=== PATIENT | female | born 1990 | race Two or more races ===

== ENCOUNTER 2022-08-14 13:54 | Emergency (ER) | payer OTHER ==
[~2022-08-14] VITALS: Ht 165.1 cm; Wt 63.5 kg
[~2022-08-14 13:54] MED LIST: CLARITIN10 MG PO; DICY20TA PO; DURICEF 500 MG CAPSULE PO; FLONASE16 G1 NS; MOTRIN800 MG PO; OXYC1TAB9 PO; ZANTAC300 MG PO; ZYRTEC10 M3 PO
[2022-08-14] MEDS ORDERED: ZOFRAN8 MG PO (17:35)
[2022-08-14] MEDS ORDERED: CARAFATE1 GM PO (17:35)
[2022-08-14] MEDS ORDERED: PROTONIX40 M1 PO (17:35)
== END 2022-08-14 17:36 | disposition home or self-care (01) ==
LOC: ER 13:54
DX: R10.9 Unspecified abdominal pain (principal); Z91.013 Allergy to seafood; Z91.018 Allergy to other foods; N39.0 Urinary tract infection, site not specified

== ENCOUNTER 2024-03-20 19:08 | Emergency (ER) | payer OTHER ==
[~2024-03-20] VITALS: Ht 165.1 cm; Wt 74.8 kg
[~2024-03-20 19:08] MED LIST changes: +CARAFATE1 GM PO; +PROTONIX40 M1 PO; +ZOFRAN8 MG PO
[2024-03-20] MEDS ORDERED: CEFTRIAXONE SODIUM 1,000 MG VIAL IM STA (21:12)
[2024-03-20] MEDS ORDERED: CEFTRIAXONE SODIUM 1,000 MG VIAL ONE (21:19)
== END 2024-03-20 21:24 | disposition home or self-care (01) ==
LOC: ER 19:09
DX: H66.91 Otitis media, unspecified, right ear (principal); H92.01 Otalgia, right ear

== ENCOUNTER 2024-07-27 11:33 | Inpatient (IN) | payer OTHER ==
[~2024-07-27] VITALS: Ht 165.1 cm; Wt 79.4 kg
[2024-07-27] VITALS (7 sets, daily range): BP systolic 106–122; BP diastolic 58–79
[2024-07-27] MEDS ORDERED: RINGERS SOLUTION,LACTATED 1,000 ML IV SCH (12:00)
[2024-07-27] MEDS ORDERED: AMPICILLIN SODIUM 2,000 MG VIAL IV ONE (12:00)
[2024-07-27 12:26] LABS: PH,URINE 6.5 (5.0-8.0); URINE APPEARANCE Clear; URINE BILIRRUBIN Negative (NEGATIVE); URINE BLOOD Negative; URINE COLOR Yellow; URINE GLUCOSE Negative (NEGATIVE); URINE KETONE Negative (NEGATIVE); URINE LEUKOCYTE Negative; URINE NITRATE Negative; URINE PROTEIN Negative (NEGATIVE); URINE UROBILINOGEN 0.2 E.U./dl
[2024-07-27 12:28] LABS: URINE EPITHELIAL CELLS 25.3 uL (0.0-38.8); URINE RBC 10.3 uL (0.0-20.8); URINE WBC 18.6 uL (0.0-23.2)
[2024-07-27 12:33] LABS: HEMATOCRIT 32.6 % (36.0-45.00); HEMOGLOBIN 10.8 g/dL (12.0-15.00); MEAN CORPUSCULAR HEMOGLOBIN 27.4 pg (27.00-32.0); PLATELET COUNT 173 K/uL (150-450); RED BLOOD COUNT 3.93 M/uL (4.00-6.00); RED CELL DISTRIBUTION WIDTH 14.4 % (11.5-14.5)
[2024-07-27 12:54] LABS: INR < 0.93; PROTHROMBIN TIME 9.9 SECONDS (9.0-11.5)
[2024-07-27 13:24] LABS: BILIRUBIN TOTAL 0.54 mg/dL (0.3-1.2); CALCIUM 8.1 mg/dL (8.5-10.1); CREATININE SERUM 0.48 mg/dL (0.55-1.02); GFR 148.94; GLOBULINA 3.1 G/DL (2.4-3.5); POTASSIUM 4.04 mEq/L (3.5-5.1); TOTAL PROTEIN 6.1 gm/dL (6.4-8.2)
[2024-07-27] MEDS ORDERED: AMPICILLIN SODIUM 1,000 MG VIAL IV SCH (16:00)
[2024-07-27] MEDS ORDERED: OXYTOCIN 10 UNITS/ML VIAL IM STA (19:16)
[2024-07-27] MEDS ORDERED: CHLORHEXIDINE GLUCONATE 120 ML BOTTLE TOP SCH (19:30)
[2024-07-27] MEDS ORDERED: OXYTOCIN 1,000 ML IV SCH (19:30)
[2024-07-27] MEDS ORDERED: IBUprofen 400 MG TABLET PO PRN (19:30)
[2024-07-27] MEDS ORDERED: ERYTHROMYCIN BASE OPHT 1GM EACH TUBE OP ONE (19:45)
[2024-07-27 23:16] LABS: HEMATOCRIT 31.7 % (36.0-45.00); MEAN CELL VOLUME 82.4 fL (80.00-100.00); PLATELET COUNT 177 K/uL (150-450); RED BLOOD COUNT 3.85 M/uL (4.00-6.00); RED CELL DISTRIBUTION WIDTH 14.3 % (11.5-14.5)
[2024-07-27 23:29] LABS: HEMOGLOBIN 10.5 g/dL (12.0-15.00); MEAN CORPUSCULAR HEMOGLOBIN 27.2 pg (27.00-32.0)
[2024-07-28 04:20] VITALS: BP 104/68
[2024-07-28 07:50] VITALS: BP 102/69
[2024-07-28 12:30] VITALS: BP 110/70
[2024-07-28 14:17] VITALS: BP 100/67
[2024-07-28 17:14] VITALS: BP 104/59
[2024-07-29 00:05] VITALS: BP 107/70
[2024-07-29] MEDS ORDERED: FF) RHO(D) IMMUNE GLOBULIN (POM) IM ONE (08:15)
[2024-07-29 13:47] VITALS: BP 101/65
== END 2024-07-29 14:13 | disposition home or self-care (01) | DRG 807 ==
LOC: LDR 11:33 → OB/GYN 07-28 11:13
PROVIDERS: ADMIT Obstetrics & Gynecology; ATTEND Obstetrics & Gynecology
PROC: 10E0XZZ Delivery of Products of Conception, External Approach (ICD-10-PCS; principal; 2024-07-27)
PROC: 0HQ9XZZ Repair Perineum Skin, External Approach (ICD-10-PCS; 2024-07-27)
PROC: 4A1HXCZ Monitoring of Products of Conception, Cardiac Rate, External Approach (ICD-10-PCS; 2024-07-27)
DX: O70.0 First degree perineal laceration during delivery (principal); Z37.0 Single live birth; Z3A.39 39 weeks gestation of pregnancy; Z20.822 Contact with and (suspected) exposure to COVID-19